=== PATIENT | female | born 1935 | race Caucasian/White ===

== ENCOUNTER → 2017-10-20 11:08 | Outpatient (CLI) | payer MEDICARE, BC, SELFPAY ==
--- NOTE | 2017-10-20 11:13 | RAD_ITS ---
STUDY: X-RAY - LUMBAR SPINE REASON FOR EXAM: Female, 81 years old. Lower back pain TECHNIQUE: 5 view(s) of the lumbar spine were obtained. COMPARISON: None FINDINGS: Osteopenia. Dextroscoliosis of the lumbar spine with apex at L2. Approximate Ahn angle 17 degrees. Somewhat exaggerated lumbosacral lordosis. Prominent spondylolisthesis lumbosacral junction, probably grade 2. This may represent spondylolisthesis across S1-S2. Based on the last vertebral body bearing ribs as T12, there appear to be 5 lumbarized vertebral bodies in addition to lumbarization of S1, transitional lumbosacral vertebral anatomy. Alignment otherwise normal. Vertebral body height normal each level. There is moderate multilevel disc narrowing involving each level of the lumbar spine, with disc vacuum changes, and multilevel mild to moderate facet arthropathy most prominent at L4-L5 and L5-S1. Intra-abdominal, moderate stool burden, unremarkable bowel pattern, moderately prominent aortoiliac atherosclerotic calcifications, no acute process. Mild SI joint degenerative changes bilaterally, symmetric. RAD/L/S Spine Min 4 Views IMPRESSION: Multilevel lumbar spondylosis. Spondylolisthesis across the lumbosacral junction. Further detailed characterization would be best accomplished with CT lumbar spine. If there are convincing features of lumbosacral radiculopathy consider also MRI lumbar spine. Electronically Signed: Scar Navarro, at 16:50 EDT Tel , Service support ,
== END ==
PROVIDERS: Family Provider Internal Medicine; PCP Internal Medicine; Visit Provider Internal Medicine
DX: M47.896 Other spondylosis, lumbar region (principal); M43.16 Spondylolisthesis, lumbar region; G89.29 Other chronic pain
CPT/HCPCS: 72110

== ENCOUNTER 2018-01-04 09:42 | Outpatient (RCR) | payer MEDICARE, BC, SELFPAY ==
--- NOTE | 2018-01-10 11:12 | HP.PT.NRP ---
HP - Discharge Summary (1) - Patient Information RY IGLESIAS was seen in my office for initial evaluation on 01/04/18. The following Plan of Care was established for this patient: Initial Frequency: 1x/Week Initial Duration: 4-6 Weeks This patient was last seen in our office 01/04/18. Pertinent comments regarding their Physical therapy will appear below: Pt seen for evaluation and educated in initial HEP for neutral spine and spinal ROM. POC was established. Pt has called to cancel all further visits thanking us for all we did but she did not wish to continue. Will discontinue at her request. At this point I will be discontinuing this patient from physical therapy. I would be happy to see this patient again in the future if found appropriate by the physician. Thank you! Horace Torre, DPT, OC
== END 2018-01-04 19:00 | disposition home or self-care (01) ==
LOC: PT 09:42
PROVIDERS: Family Provider Internal Medicine; PCP Internal Medicine; Visit Provider Internal Medicine
DX: M54.5 Low back pain (principal)
CPT/HCPCS: 97110; 97162

== ENCOUNTER → 2018-10-30 | Outpatient (REF) | payer MEDICARE, BC, SELFPAY ==
[2018-11-02 06:07] LABS: QNTFERON TB Mitogen Value > 10.00 IU/mL (.); QNTFERON TB Nil Value 0.02 IU/mL (.); QNTFERON TB1+ Ag Value 0.02 IU/mL (.); QNTFERON TB2+ Ag Value 0.01 IU/mL (.)
[2018-11-02 08:28] LABS: QNTIFERON TB Positive Criteria Negative (Negative)
== END | disposition home or self-care (01) ==
LOC: OLS.BROOKB 07:45
PROVIDERS: Visit Provider Internal Medicine
DX: Z02.2 Encounter for examination for admission to residential institution (principal)
CPT/HCPCS: 36415; 86480

== ENCOUNTER → 2018-11-21 07:10 | Outpatient (REF) | payer MEDICARE, BC, SELFPAY ==
[2018-11-21 07:58] LABS: Color, Urine Yellow (Yellow); Glucose, Dipstick Normal (Normal); Ketone-Dipstick Negative (Negative); Leukocyte Esterase-Dipstick Negative /ul (Negative); Nitrite-Dipstick Negative (Negative); Occult Blood-Urine Negative /ul (Negative); Protein-Dipstick Negative (Negative); Specific Gravity, Urine 1.005 (1.002-1.030); Urine Bilirubin Dipstick Negative (Negative); Urine Clarity Clear (Clear); Urine Urobilinogen Normal (Normal)
[2018-11-21 08:01] LABS: Hemoglobin 11.6 g/dl (12.0-15.0); Mean Corp Hgb Conc 33.1 g/gl (32-36); Mean Corpuscular Hgb 30.9 pg (27.0-32.0); Mean Corpuscular Volume 93.1 fL (81-99); Mean Platelet Vol. 8.8 fl (6.2-12.0); Platelet Count 275 K/mm3 (150-450); RBC Distribution Width CV 13.3 % (11.6-14.6); RBC Distribution Width SD 44.8 fl (35.1-43.9); Red Blood Count 3.76 M/mm3 (4.2-5.4); Scan Indicated on CBC? Y/N NO; White Blood Count 5.1 K/mm3 (4.4-11.0)
[2018-11-21 08:19] LABS: ALB/GLOB Ratio 1.2 RATIO (0.9-2.4); AST(SGOT) 19 U/L (15-37); Alanine Aminotransfer ALT/SGPT 31 U/L (13-56); Albumin, Serum 3.9 g/dL (3.2-5.0); Alkaline Phosphatase 103 U/L (45-117); Anion Gap 9 (5-15); BUN 19 mg/dL (7-18); BUN/Creat Ratio 19.1 RATIO (10-20); Calcium,Total 9.2 mg/dL (8.5-10.1); Chloride 101 mmol/L (98-107); EST Glomerular Filtration Rate 57 mL/min (>60); Est Glom Filt Rate - Afr Amer 68 mL/min (>60); Globulin 3.3 g/dL (2.2-4.2); Glucose 92 mg/dL (74-106); Potassium 4.1 mmol/L (3.5-5.1); Protein, Total 7.2 g/dL (6.4-8.2); Sodium Level 139 mmol/L (136-145); Thyroid Stim Hormone (TSH) 0.05 uIU/mL (0.358-3.74)
[2018-11-21 08:22] LABS: Vitamin D,25 Hydroxy 31.4 ng/mL (29.95-100.01)
== END ==
LOC: OLS.BROOKB 07:10
PROVIDERS: Visit Provider Internal Medicine
DX: Z79.899 Other long term (current) drug therapy (principal)
CPT/HCPCS: 36415; 80053; 81002; 82306; 84443; 85027; 87086

== ENCOUNTER → 2018-12-07 09:20 | Outpatient (REF) | payer MEDICARE, BC, SELFPAY ==
[2018-12-07 12:31] LABS: Hematocrit 34.4 % (37-47); Hemoglobin 11.1 g/dl (12.0-15.0); Mean Corp Hgb Conc 32.3 g/gl (32-36); Mean Corpuscular Hgb 30.5 pg (27.0-32.0); Mean Corpuscular Volume 94.5 fL (81-99); Mean Platelet Vol. 9.3 fl (6.2-12.0); Platelet Count 306 K/mm3 (150-450); RBC Distribution Width CV 13.3 % (11.6-14.6); RBC Distribution Width SD 44.1 fl (35.1-43.9); Red Blood Count 3.64 M/mm3 (4.2-5.4); White Blood Count 7.1 K/mm3 (4.4-11.0)
[2018-12-07 12:39] LABS: Scan Indicated on CBC? Y/N NO
[2018-12-07 12:43] LABS: AST(SGOT) 21 U/L (15-37); Alanine Aminotransfer ALT/SGPT 35 U/L (13-56); Albumin, Serum 3.5 g/dL (3.2-5.0); Alkaline Phosphatase 125 U/L (45-117); Anion Gap 5 (5-15); BUN 17 mg/dL (7-18); BUN/Creat Ratio 19.8 RATIO (10-20); Calcium,Total 8.4 mg/dL (8.5-10.1); Chloride 102 mmol/L (98-107); Creatinine, Serum 0.86 mg/dL (0.55-1.02); EST Glomerular Filtration Rate 67 mL/min (>60); Est Glom Filt Rate - Afr Amer 81 mL/min (>60); Globulin 3.4 g/dL (2.2-4.2); Glucose 62 mg/dL (74-106); Potassium 4.2 mmol/L (3.5-5.1); Protein, Total 6.9 g/dL (6.4-8.2); Sodium Level 135 mmol/L (136-145)
== END ==
LOC: OLS.BROOKB 09:20
PROVIDERS: Visit Provider Internal Medicine
DX: Z79.899 Other long term (current) drug therapy (principal); R60.9 Edema, unspecified
CPT/HCPCS: 36415; 80053; 85027

== ENCOUNTER → 2018-12-31 16:30 | Outpatient (REF) | payer MEDICARE, BC, SELFPAY ==
[2018-12-31 16:50] LABS: Hematocrit 35.1 % (37-47); Hemoglobin 11.5 g/dL (12.0-15.0); Mean Corp Hgb Conc 32.8 g/dL (32-36); Mean Corpuscular Hgb 30.7 pg (27.0-32.0); Mean Corpuscular Volume 93.9 fL (81-99); Platelet Count 312 K/mm3 (150-450); RBC Distribution Width CV 13.4 % (11.6-14.6); RBC Distribution Width SD 45.6 fl (35.1-43.9); Red Blood Count 3.74 M/mm3 (4.2-5.4); White Blood Count 8.6 K/mm3 (4.4-11.0)
[2018-12-31 17:05] LABS: ALB/GLOB Ratio 1.1 RATIO (0.9-2.4); AST(SGOT) 19 U/L (15-37); Alanine Aminotransfer ALT/SGPT 27 U/L (13-56); Albumin, Serum 3.6 g/dL (3.2-5.0); Alkaline Phosphatase 128 U/L (45-117); Anion Gap 5 (5-15); BUN 23 mg/dL (7-18); BUN/Creat Ratio 22.3 RATIO (10-20); Calcium,Total 8.7 mg/dL (8.5-10.1); Chloride 101 mmol/L (98-107); Creatinine, Serum 1.03 mg/dL (0.55-1.02); EST Glomerular Filtration Rate 54 mL/min (>60); Est Glom Filt Rate - Afr Amer 66 mL/min (>60); Globulin 3.4 g/dL (2.2-4.2); Glucose 126 mg/dL (74-106); Potassium 4.6 mmol/L (3.5-5.1); Sodium Level 133 mmol/L (136-145)
== END ==
LOC: OLS.BROOKB 16:30
PROVIDERS: Visit Provider Internal Medicine
DX: R07.9 Chest pain, unspecified (principal)
CPT/HCPCS: 36415; 80053; 84484; 85027

== ENCOUNTER 2019-01-02 09:50 | Emergency (ER) | payer MEDICARE, BC, SELFPAY ==
[2019-01-02 09:55] VITALS: BP 117/43; PULSE 66; RESP 18; TEMP 36.1; O2SAT 99; BMI 21.9
--- NOTE | 2019-01-02 10:17 | CT_ITS ---
STUDY: CT BRAIN WITHOUT CONTRAST REASON FOR EXAM: Female, 83 years old. Confusion following a recent fall. RADIATION DOSAGE (If Supplied By Facility): CTDIvol = ( 44.99 ) mGy, DLP = ( 745.49 ) mGycm TECHNIQUE: Transaxial CT imaging of the brain was performed without administration of intravenous contrast material. Individualized dose optimization techniques were used for this CT. COMPARISON: No relevant priors. FINDINGS: Normal soft tissue structures. Normal calvarium. There is a 3.9 mm x 15.2 mm calcified nodular density arising from the under surface of the left parietal bone. This is suggestive of a meningioma. There is mild cerebral atrophy with widening of the extra-axial spaces and ventricular dilatation. Normal white matter tracts of the cerebral hemispheres. Normal basal ganglia and thalami. Normal brainstem. Normal cerebellum. There is no intracranial hemorrhage. There are no findings of an acute ischemic infarction. Atherosclerotic calcification of the cavernous portions of the internal carotid arteries bilaterally. Normal visualized paranasal sinuses. CT/Brain/Head without Contrast IMPRESSION: Chronic involutional changes of the brain. Findings suggestive of a meningioma involving the left parietal bone as described. No significant mass effect is seen. Electronically Signed: You Buitrago, at 11:30 EDT , Service support ,
--- NOTE | 2019-01-02 10:17 | EKG12_ITS ---
Test Reason : CP Blood Pressure : / mmHG Vent. Rate : 060 BPM Atrial Rate : 060 BPM P-R Int : 174 ms QRS Dur : 068 ms QT Int : 420 ms P-R-T Axes : 086 046 054 degrees QTc Int : 420 ms Sinus rhythm with Premature atrial complexes Septal infarct , age undetermined Abnormal ECG Confirmed by ANGE MARTIN ([id number]), assistant film editor VY WATKINS ([id number]) on 01/03/2019 2:35:32 PM Referred By: DEMETRIUS Confirmed By:ANGE MARTIN
[2019-01-02 11:10] LABS: Absolute Lymphocyte Count 0.69 X10^3/uL (0.83-4.51); Absolute Neutrophil Count 6.2 X10^3/uL (2.0-7.7); Basophil# 0.05 X10^3/uL; Basophil% 0.6 % (0-1); Eosinophils% 2.6 % (0-5); Hematocrit 36.3 % (37-47); Hemoglobin 12.2 g/dL (12.0-15.0); Lymphocyte # 0.69 X10^3/ul (4.0); Lymphocyte % 8.8 % (19-41); Mean Corp Hgb Conc 33.6 g/dL (32-36); Mean Corpuscular Volume 92.4 fL (81-99); Monocyte# 0.64 X10^3/uL; Monocyte% 8.2 % (0-10); NRBC Flagged by Analyzer 0 % (0-5); Neutrophil # 6.24 X10^3/uL (2.7-7.7); Neutrophil % 79.5 % (47-70); Platelet Count 300 K/mm3 (150-450); RBC Distribution Width CV 13.2 % (11.6-14.6); Red Blood Count 3.93 M/mm3 (4.2-5.4); White Blood Count 7.8 K/mm3 (4.4-11.0)
[2019-01-02 11:13] VITALS: BP 128/76; PULSE 67; RESP 18; O2SAT 99
[2019-01-02] MEDS: 0.9% Normal Saline 1,000 ML 1000 ML IV (11:13)
--- NOTE | 2019-01-02 11:20 | RAD_ITS ---
STUDY: X-RAY CHEST REASON FOR EXAM: Female, 83 years old. History of fall. TECHNIQUE: Single AP portable view of the chest. COMPARISON: None. FINDINGS: EKG electrodes are seen. The lungs are clear and expanded. There is no demonstrated pleural abnormality. Normal size heart. Normal mediastinum and aditi. Normal visualized pulmonary arteries. There is atherosclerotic calcification of the aortic arch with tortuosity. There are degenerative changes of the visualized thoracic spine. There is degenerative osteoarthritis of the bilateral shoulders. There is no demonstrated abnormality of the visualized soft tissue structures of the upper abdomen. RAD/Chest 1 View (Portable) IMPRESSION: No acute abnormality is seen. Electronically Signed: You Buitrago, at 12:15 EDT , Service support ,
--- NOTE | 2019-01-02 11:26 | RAD_ITS ---
STUDY: X-RAY - PELVIS REASON FOR EXAM: Female, 83 years old. Pain following a fall. TECHNIQUE: One view of the pelvis was obtained. COMPARISON: None. FINDINGS: There is a non-specific bowel gas pattern. Normal visualized soft tissue structures. There is narrowing with cortical sclerosis and osteophyte formation of the sacroiliac joint consistent with degenerative osteoarthritic changes. Normal visualized bilateral superior and inferior pubic rami. There is narrowing with sclerosis of the pubic symphysis. Normal ischial tuberosities. Normal visualized right femoral head. Normal right acetabulum. There is mild articular joint space narrowing of the right hip. Normal visualized left femoral head. Normal left acetabulum. There is mild articular joint space narrowing of the left hip. RAD/Pelvis 1 or 2 Views IMPRESSION: Degenerative changes. No acute abnormality is seen. Electronically Signed: You Buitrago, at 12:14 EDT , Service support ,
[2019-01-02 11:33] LABS: Anion Gap 5 (5-15); BUN 21 mg/dL (7-18); BUN/Creat Ratio 20.2 RATIO (10-20); Calcium,Total 9.3 mg/dL (8.5-10.1); Chloride 102 mmol/L (98-107); Creatinine, Serum 1.04 mg/dL (0.55-1.02); EST Glomerular Filtration Rate 54 mL/min (>60); Est Glom Filt Rate - Afr Amer 65 mL/min (>60); Estimated Creatinine Clearance 32.42 ml/min; Glucose 106 mg/dL (74-106); Potassium 4.5 mmol/L (3.5-5.1); Sodium Level 136 mmol/L (136-145); Thyroid Stim Hormone (TSH) 1.07 uIU/mL (0.358-3.74)
[2019-01-02 12:09] LABS: Mucous, Urine 0 SEEN /hpf (<or=2+); Red Blood Cells-Urine 0 SEEN /hpf (0-5); Squamous Epithelial Cells - UA 0 SEEN /hpf (5-10); White Blood Cells 0 SEEN /hpf (0-5)
[2019-01-02 12:14] LABS: Color, Urine Yellow (Yellow); Glucose, Dipstick Normal (Normal); Ketone-Dipstick Negative (Negative); Leukocyte Esterase-Dipstick Negative /ul (Negative); Nitrite-Dipstick Negative (Negative); Occult Blood-Urine Negative /ul (Negative); Protein-Dipstick Negative (Negative); Specific Gravity, Urine 1.005 (1.002-1.030); Urine Bilirubin Dipstick Negative (Negative); Urine Clarity Clear (Clear); Urine Urobilinogen Normal (Normal)
[2019-01-02 12:25] LABS: Bacteria RARE /hpf (None Seen)
[2019-01-02 12:32] VITALS: BP 127/83; BP 136/58; BP 144/60
[2019-01-02 13:40] VITALS: BP 118/51; PULSE 55; RESP 14; O2SAT 97
--- NOTE | 2019-01-02 13:46 | ED.VISSUMM ---
- ER Visit Summary Date of Service: 01/02/19 Chief Complaint: Fall History of Present Illness: The patient is a 83 F who fell at her nursing facility today. The patient had been using the bathroom. She was found to have a low blood pressure there. She complains of some back pain which is chronic. She also complains of some chest pain which has been going on for several days. She had an EKG, chest x-ray, and troponin which were negative. Patient has a history of dementia and agitation. She also had a recent adjustment to her thyroid medication. History was obtained from the family and from her PCP. Patient has no other complaints or symptoms at this time. Physical Examination: Afebrile and vital signs are unremarkable. Head and neck are atraumatic. HEENT exam unremarkable. Heart is regular rate and rhythm. Lungs are clear. Abdomen soft and nontender. Patient has some mild tenderness to her left hip. Negative logroll. Good range of motion. Skin unremarkable. Patient is alert. Cranial nerves grossly intact. Normal strength and sensation. GCS 14. Test Results: EKG showed sinus rhythm at a rate of 60 with PACs. CBC, BMP, urine, troponin, TSH all normal. Chest x-ray, pelvis x-ray, and CT brain all unremarkable except for a suspected meningioma to her left parietal bone. Emergency Department Course and Treatment: Patient presents after a fall. It sounds like this was related to using the bathroom. Orthostatics were negative here but she was treated with a fluid bolus. She was monitored and had no hypotension here. Work-up as above was all fairly unremarkable. 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 I do not believe this is of any clinical significance and I do not believe that she is a surgical candidate given her history, age, and her and her family's wishes. I have nothing to explain her fall or low blood pressure. All of her findings and vitals are stable. She will be discharged back to her facility. Follow-up with her primary doctor. Treatment Plan: As above Disposition: Discharge Impression: 1. Fall This note was generated with [employer] software. It may contain incorrect words, spelling, and punctuation that were not noted in review of the chart prior to signing ED Disposition - Plan for ED Patient: Referrals: May Flowers MD [Primary Care Provider] -
--- NOTE | 2019-01-02 13:50 | ED.DEP ---
ED Disposition - Plan for ED Patient: Instructions: Fall Prevention Referrals: May Flowers MD [Primary Care Provider] -
[2019-01-02 13:58] VITALS: BP 118/51; PULSE 54; RESP 18; O2SAT 99
== END 2019-01-02 13:58 | disposition home or self-care (01) ==
LOC: ED 10:27
PROVIDERS: Emergency Provider Emergency Medicine; Family Provider Internal Medicine; PCP Internal Medicine
DX: Z04.3 Encounter for examination and observation following other accident (principal); W19.XXXA Unspecified fall, initial encounter; Y92.129 Unspecified place in nursing home as the place of occurrence of the external cause; R03.1 Nonspecific low blood-pressure reading; F03.90 Unspecified dementia, unspecified severity, without behavioral disturbance, psychotic disturbance, mood disturbance, and anxiety
CPT/HCPCS: 70450; 71045; 72170; 80048; 81001; 84443; 84484; 85025; 93005; 96360; 99285; J7030

== ENCOUNTER → 2019-01-18 05:00 | Outpatient (REF) | payer MEDICARE, BC, SELFPAY ==
[2019-01-02 09:55] VITALS: BMI 21.9
[2019-01-18 08:11] LABS: Hematocrit 36.8 % (37-47); Hemoglobin 12.3 g/dL (12.0-15.0); Mean Corp Hgb Conc 33.4 g/dL (32-36); Mean Corpuscular Hgb 31.2 pg (27.0-32.0); Mean Corpuscular Volume 93.4 fL (81-99); Mean Platelet Vol. 9.2 fl (6.2-12.0); Platelet Count 319 K/mm3 (150-450); RBC Distribution Width CV 13.2 % (11.6-14.6); RBC Distribution Width SD 45.2 fl (35.1-43.9); RET-HE 36.9 pg (30-35); Red Blood Count 3.94 M/mm3 (4.2-5.4); Reticulocyte Count 1.25 % (0.5-1.5); White Blood Count 6.8 K/mm3 (4.4-11.0)
[2019-01-18 08:40] LABS: Ferritin 65 ng/mL (8-252); Iron 71 ug/dL (50-170); Iron Binding Capacity,Total 358 ug/dL (250-450); LDH 336 U/L (84-246)
[2019-01-22 10:15] LABS: Haptoglobin 164 mg/dL (34-200)
== END ==
LOC: OLS.BROOKB 05:00
PROVIDERS: Visit Provider Internal Medicine
DX: R53.83 Other fatigue (principal); Z79.899 Other long term (current) drug therapy; E61.1 Iron deficiency
CPT/HCPCS: 36415; 82728; 83010; 83540; 83550; 83615; 85027; 85045

== ENCOUNTER 2019-01-26 10:04 | Emergency (ER) | payer MEDICARE, BC, SELFPAY ==
[2019-01-26 10:06] VITALS: BP 159/59; PULSE 58; RESP 18; TEMP 36.3; O2SAT 99; BMI 21.7
[2019-01-26 10:13] VITALS: O2SAT 100
--- NOTE | 2019-01-26 10:14 | RAD_ITS ---
STUDY: X-RAY - PELVIS AND RIGHT HIP REASON FOR EXAM: Female, 83 years old. Pain following a fall. TECHNIQUE: 3 views of the pelvis and hip. COMPARISON: Comparison is made with prior examination dated January 02, 2019. FINDINGS: There is a non-specific bowel gas pattern. Normal visualized soft tissue structures. There is narrowing with cortical sclerosis and osteophyte formation of the sacroiliac joint consistent with degenerative osteoarthritic changes. Normal bilateral superior and inferior pubic rami. There is narrowing with sclerosis of the pubic symphysis. Normal bilateral ischial tuberosities. Normal visualized femoral head. Normal acetabulum. There is mild articular joint space narrowing of the hip. RAD/HIP, UNI W/ Pelvis 2-3 Views IMPRESSION: No acute abnormality is seen. Degenerative changes as described. Electronically Signed: You Buitrago, at 11:17 EDT , Service support ,
--- NOTE | 2019-01-26 10:14 | CT_ITS ---
STUDY: CT CERVICAL SPINE WITHOUT CONTRAST REASON FOR EXAM: Female, 83 years old. Cervical pain following a fall. RADIATION DOSAGE (If Supplied By Facility): CTDIvol = ( 12.21 ) mGy, DLP = ( 230.96 ) mGycm TECHNIQUE: High resolution transaxial imaging was performed without contrast material. Sagittal and coronal images were reconstructed. Individualized dose optimization techniques were used for this CT. COMPARISON: None FINDINGS: Normal craniovertebral junction. Normal anterior atlantoaxial articulation. Normal odontoid process. There is straightening of the normal cervical lordosis. Normal vertebral bodies and posterior osseous elements. C2-3: Minimal anterior listhesis of C2 on C3 most likely secondary to the facet joint osteoarthritis and hypertrophy worse on the right side. C3-4: Marked degree of disc space narrowing with spondylosis and subchondral sclerosis as well as uncovertebral arthrosis. There is also evidence of facet joint osteoarthritis and hypertrophy with bilateral neural foraminal stenosis. C4-5: Marked degree of disc space narrowing with subchondral sclerosis and spondylosis. Uncovertebral arthrosis. Mild degree of bilateral neural foraminal stenosis. C5-6: Marked degree of disc space narrowing with spondylosis and uncovertebral arthrosis. No significant neural foraminal stenosis seen. C6-7: Marked degree of disc space narrowing with spondylosis. Uncovertebral arthrosis. Facet joint osteoarthritis and hypertrophy. Left neural foraminal stenosis. C7-T1: Disc space narrowing and uncovertebral arthrosis. Normal visualized soft tissue structures. CT/Spine Cervical without Contras IMPRESSION: Multilevel degenerative changes, as described above. Electronically Signed: You Buitrago, at 11:14 EDT , Service support ,
--- NOTE | 2019-01-26 10:14 | CT_ITS ---
STUDY: CT BRAIN WITHOUT CONTRAST REASON FOR EXAM: Female, 83 years old. Dementia. History of fall. RADIATION DOSAGE (If Supplied By Facility): CTDIvol = ( 44.99 ) mGy, DLP = ( 745.49 ) mGycm TECHNIQUE: Transaxial CT imaging of the brain was performed without administration of intravenous contrast material. Individualized dose optimization techniques were used for this CT. COMPARISON: Comparison is made with prior study dated January 02, 2019. FINDINGS: Normal soft tissue structures. Normal calvarium. There is mild cerebral atrophy with widening of the extra-axial spaces and ventricular dilatation. There are areas of decreased attenuation within the white matter tracts of the supratentorial brain, consistent with microvascular disease changes. 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 Normal brainstem. Normal cerebellum. Stable 3.9 mm x 15.2 mm calcified nodular density arising from the undersurface of the left parietal bone. There is no intracranial hemorrhage. There are no findings of an acute ischemic infarction. Atherosclerotic calcification of the cavernous portions of the internal carotid arteries bilaterally. Normal visualized paranasal sinuses. CT/Brain/Head without Contrast IMPRESSION: Chronic involutional changes of the brain. Stable calcific density arising from the undersurface of the left parietal bone. Electronically Signed: You Buitrago, at 11:11 EDT , Service support ,
--- NOTE | 2019-01-26 10:16 | ED.DCSUM_ITS ---
- ER Visit Summary Date of Service: 01/26/19 Chief Complaint: Unwitnessed fall at [facility] History of Present Illness: The patient is a 83 F who had an unwitnessed fall at the [facility]. Staff found her about 45 minutes ago. She was complaining of head and neck pain. She is also complaining of right hip pain. They ambulated the patient back to her room and noted that she was mumbling with her speech and was complaining of these pain complaints. She is on no blood thinning medications. She has a history of dementia so the history from the patient is limited. She is a DNR comfort care only. There was an unknown LOC as this was unwitnessed. Physical Examination: Vital signs reviewed. HEENT exam is atraumatic. Her pupils are equal. She has diffuse cervical spinal tenderness. Heart is regular rate and rhythm. Lungs are clear bilaterally. Abdomen soft nontender. She does have tenderness over the right hip and greater trochanter area. She has painful range of motion of the right hip. Her GCS is 14 which is likely her baseline. She has diffuse overall weakness with no lateralizing symptoms. Test Results: CT scan of the head and cervical spine reveal chronic and degenerative changes. Chest x-ray is no acute abnormalities. Right hip x-ray reveals arthritis with no fracture or dislocation Emergency Department Course and Treatment: Family is now at bedside and states that she is in her normal state of health and normal mental status. X-rays and CAT scans do not show any acute injuries. Patient will be transferred back to her facility. Treatment Plan: [] Disposition: Discharge Impression: Fall, right hip contusion This note was generated with [employer] dictation software. It may contain incorrect words, spelling, and punctuation that were not noted in review of the chart prior to signing ED Disposition - Plan for ED Patient: Referrals: May Flowers MD [Primary Care Provider] -
--- NOTE | 2019-01-26 10:45 | RAD_ITS ---
STUDY: X-RAY CHEST REASON FOR EXAM: Female, 83 years old. Cough. TECHNIQUE: Single AP portable view of the chest. COMPARISON: Comparison is made with prior examination dated January 02, 2019. FINDINGS: The lungs are clear and expanded. There is no demonstrated pleural abnormality. Normal size heart. Normal mediastinum and aditi. Normal visualized pulmonary arteries. There is atherosclerotic calcification of the aortic arch with tortuosity. Normal visualized thoracic spine. There is degenerative osteoarthritis of the bilateral shoulders. There is no demonstrated abnormality of the visualized soft tissue structures of the upper abdomen. RAD/Chest 1 View (Portable) IMPRESSION: No acute abnormality is seen. Electronically Signed: You Buitrago, at 11:19 EDT , Service support ,
--- NOTE | 2019-01-26 11:44 | ED.DEP ---
ED Disposition - Plan for ED Patient: Disposition: Home or Assisted Living Instructions: FALL, Mechanical Referrals: May Flowers MD [Primary Care Provider] -
== END 2019-01-26 12:09 | disposition home or self-care (01) ==
PROVIDERS: Emergency Provider Emergency Medicine; Family Provider Internal Medicine; PCP Internal Medicine
DX: S70.01XA Contusion of right hip, initial encounter (principal); R51 Headache; M54.2 Cervicalgia; W19.XXXA Unspecified fall, initial encounter; Y93.9 Activity, unspecified; Y92.129 Unspecified place in nursing home as the place of occurrence of the external cause; M16.11 Unilateral primary osteoarthritis, right hip; F03.90 Unspecified dementia, unspecified severity, without behavioral disturbance, psychotic disturbance, mood disturbance, and anxiety; I10 Essential (primary) hypertension; E03.9 Hypothyroidism, unspecified; Z66 Do not resuscitate; Z79.899 Other long term (current) drug therapy
CPT/HCPCS: 70450; 71045; 72125; 73502; 99284

== ENCOUNTER 2019-01-30 08:30 | Emergency (ER) | payer MEDICARE, BC, SELFPAY ==
[2019-01-30 08:32] VITALS: BP 144/113; PULSE 71; TEMP 36.9; O2SAT 97
--- NOTE | 2019-01-30 08:35 | CT_ITS ---
STUDY: CT BRAIN WITHOUT CONTRAST REASON FOR EXAM: Female, 83 years old. Fall. Dementia and confusion. RADIATION DOSAGE (If Supplied By Facility): CTDIvol = ( 44.99 ) mGy, DLP = ( 779.24 ) mGycm TECHNIQUE: Transaxial CT imaging of the brain was performed without administration of intravenous contrast material. Individualized dose optimization techniques were used for this CT. COMPARISON: Comparison is made with prior study dated January 26, 2019. FINDINGS: Normal soft tissue structures. Normal calvarium. There is mild cerebral atrophy with widening of the extra-axial spaces and ventricular dilatation. There are areas of decreased attenuation within the white matter tracts of the supratentorial brain, consistent with microvascular disease changes. 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 Stable stable 14 mm x 4 mm partially calcified nodular density arising from the inner plate of the left parietal bone suggestive of a meningioma. Normal basal ganglia and thalami. Normal brainstem. Normal cerebellum. There is no intracranial hemorrhage. There are no findings of an acute ischemic infarction. Normal visualized paranasal sinuses. CT/Brain/Head without Contrast IMPRESSION: Chronic involutional changes of the brain. Stable calcific density arising from the undersurface of the left parietal bone as described. Electronically Signed: You Buitrago, at 10:06 EDT , Service support ,
--- NOTE | 2019-01-30 08:35 | RAD_ITS ---
STUDY: X-RAY CHEST REASON FOR EXAM: Female, 83 years old. History of fall. Chest pain. TECHNIQUE: Single AP portable view of the chest. COMPARISON: Comparison is made with prior study dated January 26, 2019. FINDINGS: Hyperinflation. The lungs are clear. There is no demonstrated pleural abnormality. Normal size heart. Normal mediastinum and aditi. Normal visualized pulmonary arteries. There is atherosclerotic calcification of the aortic arch with tortuosity. Normal visualized thoracic spine. There is degenerative osteoarthritis of the bilateral shoulders. There is no demonstrated abnormality of the visualized soft tissue structures of the upper abdomen. RAD/Chest 1 View (Portable) IMPRESSION: No acute abnormality is seen. Electronically Signed: You Buitrago, at 9:24 EDT , Service support ,
[2019-01-30 08:36] VITALS: O2SAT 100
--- NOTE | 2019-01-30 08:36 | CT_ITS ---
STUDY: CT CERVICAL SPINE WITHOUT CONTRAST REASON FOR EXAM: Female, 83 years old. Confusion. Dementia. History of fall. RADIATION DOSAGE (If Supplied By Facility): CTDIvol = ( 11.79 ) mGy, DLP = ( 191.99 ) mGycm TECHNIQUE: High resolution transaxial imaging was performed without contrast material. Sagittal and coronal images were reconstructed. Individualized dose optimization techniques were used for this CT. COMPARISON: Comparison is made with prior study dated January 26, 2019. FINDINGS: Normal craniovertebral junction. There are degenerative changes of the anterior atlantoaxial articulation. Normal odontoid process. There is straightening of the normal cervical lordosis. Normal vertebral bodies and posterior osseous elements. C2-3: Minimal anterolisthesis of C2 on C3 most likely secondary to the facet joint osteoarthritis. C3-4: Marked degree of disc space narrowing with spondylosis and some subchondral sclerosis. Uncovertebral arthrosis. Hypertrophy of the facet joint with bilateral neural foraminal stenosis worse on the left side. C4-5: Marked degree of disc space narrowing with subchondral sclerosis. Uncovertebral arthrosis. Bilateral neural foraminal stenosis. C5-6: Marked degree of disc space narrowing with spondylosis and uncovertebral arthrosis. C6-7: Marked degree of disc space narrowing with subchondral sclerosis. Uncovertebral arthrosis. Facet joint osteoarthritis and hypertrophy. Left neural foraminal stenosis. C7-T1: Moderate degree of disc space narrowing. Uncovertebral arthrosis. Facet joint osteoarthritis. Normal visualized soft tissue structures. CT/Spine Cervical without Contras IMPRESSION: Multilevel degenerative changes, as described above. Electronically Signed: You Buitrago, at 10:09 EDT , Service support ,
--- NOTE | 2019-01-30 08:36 | ED.VIS.GEN ---
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 Apparently, she was found next to her bed this morning by her nursing facility. They were concerned that she may have hit her head. The patient is complaining of diffuse pain, but this is normal for her. There was no witnessed fall. She was able to get back up and get placed back in bed. She was still complaining of pain so she was brought in for further evaluation. The patient was seen here about 4 days ago after a fall. She is comfort care only. There is concerned that she might have a urinary tract infection. Prior similar symptoms: Yes Recent Illness/Hospitalization: No Past Medical History - Allergies and Home Meds Allergies/Adverse Reactions: Allergies hydrocodone Allergy (Verified 01/30/19 08:31) Unknown hydromorphone [From Dilaudid] Allergy (Verified 01/30/19 08:31) Unknown meperidine [From Demerol] Allergy (Verified 01/30/19 08:31) Unknown Penicillins [PCN] Allergy (Verified 01/30/19 08:31) Swelling propoxyphene [From Darvon] Allergy (Verified 01/30/19 08:31) Unknown Primary Care Physician: May Flowers MD [Primary Care Provider] - Prior records reviewed: Yes Past Medical History: - - Dementia Smoking Status: Never smoker Review of Systems ROS: Unable to Obtain Physical Exam Vital Signs/Narrative: Vital Signs Temp Pulse BP Pulse Ox 01/30/19 08:36 100 01/30/19 08:32 98.5 F 71 144/113 H 97 Inital Vital Signs reviewed: Yes General: Well nourished, Well developed, No Acute Distress Head: Normocephalic, Atraumatic Eyes: Perrl, EOMI ENT: Moist mucous membranes, No rhinorrhea, TM's clear Neck: Supple, Nontender, No lymphadenopathy Cardiovascular: Regular rate, Regular rhythm, No murmurs Respiratory: No distress, CTA bilaterally, Chest nontender Abdomen: Soft, Nontender, Nondistended Back: Nontender Extremities: Nontender, No edema Skin: Normal color, No rash Neurological: Normal Strength, Normal Sensation, Confused Psychological: Normal affect Diagnostic/Tx/Re-eval Chest X-Ray - ED: 2 View, Read by ED Physician, Read by Radiologist, Normal, Heart, Lungs Clinical Impression(s) from Imaging Studies Brain CT 01/30/19 08:35 IMPRESSION: Chronic involutional changes of the brain. Stable calcific density arising from the undersurface of the left parietal bone as described. Electronically Signed: You Minna, at 10:06 EDT , Service support , Chest X-Ray 01/30/19 08:35 IMPRESSION: No acute abnormality is seen. Electronically Signed: You Buitrago, at 9:24 EDT , Service support , Cervical Spine CT 01/30/19 08:36 IMPRESSION: Multilevel degenerative changes, as described above. Electronically Signed: You Buitrago, at 10:09 EDT , Service support , Abnormal Lab Results 01/30/19 01/30/19 01/30/19 09:15 09:15 09:26 WBC 5.1 RBC 4.00 L Hgb 12.3 Hct 37.0 MCV 92.5 MCH 30.8 MCHC 33.2 RDW Std Deviation 46.3 H RDW Coeff of Evelyn 13.5 Plt Count 282 MPV 9.2 Immature Gran % (Auto) 0.200 Neut % (Auto) 59.7 Lymph % (Auto) 20.9 Petroleum % (Auto) 12.5 H Eos % (Auto) 5.7 H Baso % (Auto) 1.0 Absolute Neuts (auto) 3.1 Absolute Lymphs (auto) 1.07 Nucleated RBC % 0 Sodium 139 Potassium 4.0 Chloride 105 Carbon Dioxide 29.0 Anion Gap 5 BUN 21 H Creatinine 1.00 Estim Creat Clear Calc 34.45 Est GFR (MDRD) Af Amer 68 Est GFR (MDRD) Non-Af 56 L BUN/Creatinine Ratio 21.0 H Glucose 87 Calcium 9.6 Total Bilirubin 0.50 AST 24 ALT 35 Alkaline Phosphatase 126 H Total Protein 7.8 Albumin 4.1 Globulin 3.7 Albumin/Globulin Ratio 1.1 Urine Color Yellow Urine Clarity Clear Urine pH 8.0 Ur Specific [place] 1.010 Urine Protein 15 H Urine Glucose (UA) Normal Urine Ketones Negative Urine Occult Blood Negative Urine Nitrite Negative Urine Bilirubin Negative Urine Urobilinogen Normal Ur Leukocyte Esterase Negative Urine RBC 0 SEEN Urine WBC 0 SEEN Ur Squamous Epith Cells 0 SEEN Urine Bacteria RARE Urine Mucus RARE - Medical Decision Making The patient stents to the emergency department after a fall. She was found in the common area of her skilled nursing today. They were concerned that she had struck her head. She is otherwise been acting normally. The patient has had a few falls within the past month. She denies any current injury. There was question if she had a urinary tract infection as an outpatient. I did repeat her urine and there is no evidence of infection. CT of the head and C-spine were unremarkable. Chest x-ray was unremarkable. Labs are at the patient's baseline. At this point, the patient has no significant injury. I do feel that she is safe to discharge back to her skilled facility. Impression 1. Mechanical fall ED Disposition - Plan for ED Patient: Instructions: FALL, Mechanical Referrals: May Flowers MD [Primary Care Provider] -
[2019-01-30 09:24] LABS: Absolute Lymphocyte Count 1.07 X10^3/uL (0.83-4.51); Absolute Neutrophil Count 3.1 X10^3/uL (2.0-7.7); Basophil# 0.05 X10^3/uL; Eosinophil# 0.29 X10^3/uL; Eosinophils% 5.7 % (0-5); Hemoglobin 12.3 g/dL (12.0-15.0); Lymphocyte # 1.07 X10^3/ul (4.0); Lymphocyte % 20.9 % (19-41); Mean Corp Hgb Conc 33.2 g/dL (32-36); Mean Corpuscular Hgb 30.8 pg (27.0-32.0); Mean Corpuscular Volume 92.5 fL (81-99); Mean Platelet Vol. 9.2 fl (6.2-12.0); Monocyte# 0.64 X10^3/uL; Monocyte% 12.5 % (0-10); NRBC Flagged by Analyzer 0 % (0-5); Neutrophil # 3.07 X10^3/uL (2.7-7.7); Neutrophil % 59.7 % (47-70); Platelet Count 282 K/mm3 (150-450); RBC Distribution Width CV 13.5 % (11.6-14.6); RBC Distribution Width SD 46.3 fl (35.1-43.9); White Blood Count 5.1 K/mm3 (4.4-11.0)
[2019-01-30 09:31] LABS: Red Blood Cells-Urine 0 SEEN /hpf (0-5); Squamous Epithelial Cells - UA 0 SEEN /hpf (5-10); White Blood Cells 0 SEEN /hpf (0-5)
[2019-01-30 09:33] LABS: Color, Urine Yellow (Yellow); Glucose, Dipstick Normal (Normal); Ketone-Dipstick Negative (Negative); Leukocyte Esterase-Dipstick Negative /ul (Negative); Nitrite-Dipstick Negative (Negative); Occult Blood-Urine Negative /ul (Negative); Protein-Dipstick 15 mg/dl (Negative); Urine Bilirubin Dipstick Negative (Negative); Urine Clarity Clear (Clear); Urine Urobilinogen Normal (Normal)
[2019-01-30 09:37] LABS: ALB/GLOB Ratio 1.1 RATIO (0.9-2.4); AST(SGOT) 24 U/L (15-37); Alanine Aminotransfer ALT/SGPT 35 U/L (13-56); Albumin, Serum 4.1 g/dL (3.2-5.0); Alkaline Phosphatase 126 U/L (45-117); Anion Gap 5 (5-15); BUN 21 mg/dL (7-18); Calcium,Total 9.6 mg/dL (8.5-10.1); Chloride 105 mmol/L (98-107); EST Glomerular Filtration Rate 56 mL/min (>60); Est Glom Filt Rate - Afr Amer 68 mL/min (>60); Estimated Creatinine Clearance 34.45 ml/min; Globulin 3.7 g/dL (2.2-4.2); Glucose 87 mg/dL (74-106); Protein, Total 7.8 g/dL (6.4-8.2); Sodium Level 139 mmol/L (136-145)
[2019-01-30 09:40] LABS: Bacteria RARE /hpf (None Seen); Mucous, Urine RARE /hpf (<or=2+)
[2019-01-30 10:36] VITALS: BP 161/97; PULSE 63; RESP 16; O2SAT 95
[2019-01-30 10:55] VITALS: BP 192/95
== END 2019-01-30 11:04 | disposition home or self-care (01) ==
PROVIDERS: Emergency Provider Emergency Medicine; Family Provider Internal Medicine; PCP Internal Medicine
DX: Z04.3 Encounter for examination and observation following other accident (principal); F03.90 Unspecified dementia, unspecified severity, without behavioral disturbance, psychotic disturbance, mood disturbance, and anxiety; Z79.899 Other long term (current) drug therapy
CPT/HCPCS: 70450; 71045; 72125; 80053; 81001; 85025; 96360; 96361; 99285; J7040; P9612